=== PATIENT | female | born 1960 | race Hispanic/Latino ===

== ENCOUNTER → 2017-06-03 | Day surgery (SDC) | payer OTHER ==
[2017-05-27 09:50] LABS: BASOPHILS % 0.5 % (0.0-1.0); EOSINOPHILS # (AUTO) 0.1 (0.0-0.4); EOSINOPHILS % 1.4 % (0.0-6.0); HEMATOCRIT 39.8 % (34.2-44.1); HEMOGLOBIN 13.6 g/dL (12.0-16.0); LYMPHOCYTES # (AUTO) 2.7 (1.0-3.2); LYMPHOCYTES % 34.8 % (18.0-39.1); MEAN CORPUSCULAR HEMOGLOBIN 29.6 pg (28-32); MEAN CORPUSCULAR HGB CONC 34.2 g/dL (31-35); MEAN CORPUSCULAR VOLUME 86.5 fL (81-99); MONOCYTES # (AUTO) 0.7 (0.2-0.8); MONOCYTES % 8.6 % (4.4-11.3); NEUTROPHILS # (AUTO) 4.2 (2.1-6.9); NEUTROPHILS % 54.3 % (38.7-80.0); PLATELET COUNT 264 x10e3/uL (140-360); RED CELL DISTRIBUTION WIDTH 13.4 % (11.7-14.4)
[~2017-06-03] MED LIST: CLONAZEPAM1 MG PO; FENTANYL CITRATE/PF 100MCG/2 ML INJ ONE; HYOSCYAMINE SULFATE 0.5 MG/ML AMP ONE; MIDAZOLAM HCL 2 MG/2 ML VIAL ONE; PROPOFOL IV EMULSION 10 MG/ML 50 ML VIAL ONE; VITAMIN D250000 UNIT PO
[2017-06-03 13:05] LABS: WBC,FECAL (FECAL LACTOFERRIN) NEGATIVE (NEGATIVE)
--- NOTE | 2017-06-03 13:29 | Operative Report ---
DATE OF PROCEDURE: June 03, 2017 REFERRING PHYSICIAN: Dr. Ari Alexandre. PROCEDURE PERFORMED: 1. Esophagogastroduodenoscopy with biopsies. 2. Colonoscopy with polypectomy and biopsies. INDICATIONS FOR ESOPHAGOGASTRODUODENOSCOPY: History of heartburn, melena. INDICATIONS FOR COLONOSCOPY: Colorectal cancer screening. Intermittent diarrhea. MEDICATION: Patient was done under MAC. Please see anesthesiologist's note. PROCEDURE: With the patient in the left lateral decubitus position, the flexible fiberoptic Olympus gastroscope was introduced into the esophagus under direct visualization without any difficulty. There was some patchy erythema noted in the esophagus. There were also some longitudinal furrows noted compatible with eosinophilic esophagitis, and biopsies were obtained. The scope was then advanced with ease into the stomach. Mucosa overlying the antrum and the body revealed some patchy erythema and mild to moderate edema, and biopsies were obtained and sent to stain for H. pylori. The pylorus was of normal contour and shape, was intubated with ease, and the scope was advanced all the way to the 2nd portion of the duodenum. Biopsies were obtained from the proximal 2nd portion to rule out sprue considering patient's history of diarrhea. The mucosa overlying the duodenal bulb grossly appeared to be within normal limits. The scope was then withdrawn back into the stomach and retroflexed, and the mucosa overlying the fundus and the cardia appeared to be within normal limits. The scope was then straightened out. The stomach was decompressed. The scope was subsequently withdrawn. Patient tolerated the procedure well. IMPRESSION: 1. Rule out eosinophilic esophagitis. 2. Gastritis biopsied. Biopsies sent to stain for H. pylori. 3. Rule out sprue. PLAN: Follow up histology. Initiate Protonix 40 mg 1 p.o. q.a.m. a.c. Patient was then turned around and after adequate lubrication of the anal canal, a flexible fiberoptic Olympus colonoscope was inserted into the rectum with ease and advanced all the way to the cecum. 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 The ileocecal valve was intubated, and the scope was advanced into the terminal ileum. Biopsies were obtained. The scope was then withdrawn back into the colon. It was then withdrawn slowly, and other than for melanosis coli and some scattered diverticular disease, mucosa overlying the ascending and transverse grossly appeared to be within normal limits. There were some patchy areas of erythema and low-grade edema noted in the left colon. Multiple random biopsies were obtained. One polyp was hot biopsied from the distal sigmoid. The scope was then retroflexed into the distal rectum, and the area around the dentate line was examined carefully and small internal hemorrhoids were noted, none of which was actively bleeding. The scope was then straightened out. An adequate stool specimen was secured. It was subsequently withdrawn. Patient tolerated the procedure well. IMPRESSION: 1. Melanosis coli. 2. Diverticulosis. 3. Sigmoid colon polyp hot biopsied. 4. Internal hemorrhoids, none actively bleeding. PLAN: Follow up histology. Follow up stool studies. Initiate VSL#3 DS 1 p.o. daily and Bentyl 10 mg 1 p.o. t.i.d. Patient might benefit from a followup colonoscopy in 3 years. Job#: [id number] EV cc:ARI ALEXANDRE MD
[2017-06-03 14:42] LABS: C DIFFICILE TOXIN A&B AMP PROB NEGATIVE (NEGATIVE)
== END | disposition home or self-care (01) ==
LOC: OR 08:36
PROVIDERS: ATTEND Internal Medicine Gastroenterology
DX: K29.70 Gastritis, unspecified, without bleeding (principal); K63.5 Polyp of colon; K63.89 Other specified diseases of intestine; K22.8 Other specified diseases of esophagus; K25.9 Gastric ulcer, unspecified as acute or chronic, without hemorrhage or perforation; K57.30 Diverticulosis of large intestine without perforation or abscess without bleeding; K21.9 Gastro-esophageal reflux disease without esophagitis; K58.9 Irritable bowel syndrome, unspecified; K64.8 Other hemorrhoids; R03.0 Elevated blood-pressure reading, without diagnosis of hypertension; F32.9 Major depressive disorder, single episode, unspecified; F41.9 Anxiety disorder, unspecified; Z01.810 Encounter for preprocedural cardiovascular examination; Z01.812 Encounter for preprocedural laboratory examination; Z68.27 Body mass index [BMI] 27.0-27.9, adult
CPT/HCPCS: 36415; 43239; 45384; 83630; 83993; 85025; 87045; 87177; 87328; 87493; 93005; J1980; J2250; 45378; 45380

== ENCOUNTER → 2021-05-08 | Day surgery (SDC) | payer OTHER ==
[~2021-05-08] MED LIST changes: +CYCLOPENTOLATE HCL 1% OPTH SOLN 2ML BTL ONE; -HYOSCYAMINE SULFATE 0.5 MG/ML AMP ONE; +LIDOCAINE HCL 2% LOCAL INJ 5 ML SDV VIAL INJ ONE; +PROPOFOL IV EMULSION 10 MG/ML 20 ML VIAL ONE; -PROPOFOL IV EMULSION 10 MG/ML 50 ML VIAL ONE; +SERTRALINE HCL100 MG PO; +SIMVASTATIN20 MG PO; +XANAX1 MG PO
[2021-05-08 10:20] VITALS: BP 121/78
[2021-05-08 11:37] LABS: WBC,FECAL (FECAL LACTOFERRIN) NEGATIVE (NEGATIVE)
[2021-05-09 15:10] LABS: C DIFFICILE TOXIN A&B AMP PROB NEGATIVE (NEGATIVE)
[2021-05-11 15:12] LABS: ENDOMYSIAL ANTIBODIES, IGA Negative (Negative)
== END | disposition home or self-care (01) ==
LOC: OR 06:45
PROVIDERS: ATTEND Internal Medicine Gastroenterology
DX: K29.70 Gastritis, unspecified, without bleeding (principal); K63.5 Polyp of colon; K25.9 Gastric ulcer, unspecified as acute or chronic, without hemorrhage or perforation; K29.80 Duodenitis without bleeding; K52.9 Noninfective gastroenteritis and colitis, unspecified; K57.32 Diverticulitis of large intestine without perforation or abscess without bleeding; K20.90 Esophagitis, unspecified without bleeding; K62.89 Other specified diseases of anus and rectum; K64.8 Other hemorrhoids; Z71.3 Dietary counseling and surveillance; E78.00 Pure hypercholesterolemia, unspecified; F41.9 Anxiety disorder, unspecified; F32.A Depression, unspecified; Z88.1 Allergy status to other antibiotic agents; Z01.810 Encounter for preprocedural cardiovascular examination; Z01.812 Encounter for preprocedural laboratory examination; Z20.822 Contact with and (suspected) exposure to COVID-19; Z79.899 Other long term (current) drug therapy; Z86.16 Personal history of COVID-19
CPT/HCPCS: 43239; 45378; 45380; 45385; 82784; 83516; 83630; 83993; 86256; 87045; 87177; 87328; 87493; 93005; J2001; J2250; J3010; U0002